=== PATIENT | female | born 1960 | race African-American/Black ===

== ENCOUNTER 2021-05-09 11:15 | Emergency (ER) | payer OTHER ==
[2021-05-09 11:27] VITALS: TEMP 97.8; BMI 32.3
[2021-05-09] MEDS ORDERED: ACETAMINOPHEN 1000 MG/100 ML BAG IVPB ONE (13:19)
[2021-05-09] MEDS ORDERED: SODIUM CHLORIDE 0.9% 500 ML INFUS.BAG IV ONE (13:19)
[2021-05-09] MEDS ORDERED: ACETAMINOPHEN INJECTION 100 ML IVPB ONE (13:26)
[2021-05-09 15:03] LABS: CHLORIDE 104 mmol/L (98-107); SODIUM 140 mmol/L (136-145)
[2021-05-09 15:06] LABS: ANION GAP 8 MMOL/L (8-16); BLOOD UREA NITROGEN 13.9 mg/dL (7-18); CO2 28 mmol/L (21-32)
[2021-05-09 15:07] LABS: ALBUMIN 3.7 g/dl (3.4-5.0); GLUCOSE,RANDOM 94 mg/dL (74-106)
[2021-05-09 15:09] LABS: CREATININE 0.7 mg/dL (0.55-1.3); SGOT/AST 30 U/L (15-37); SGPT/ALT 30 U/L (13-61)
[2021-05-09 15:10] LABS: TOT PROT 7.6 g/dl (6.4-8.2)
[2021-05-09 15:11] LABS: BILIRUBIN,TOTAL 0.9 mg/dL (0.2-1)
[2021-05-09 15:12] LABS: ALK PHOS 55 U/L (45-117)
[2021-05-09 15:20] LABS: EPI CELLS 11 /uL (0-25.1); HYALINE CASTS 0 /uL (0-3.1); URINE APPEARANCE CLEAR; URINE BACTERIA 45 /uL (0-1359); URINE BILIRUBIN NEGATIVE (NEGATIVE); URINE COLOR YELLOW; URINE GLUCOSE (UA) NEGATIVE (NEGATIVE); URINE KETONE NEGATIVE (NEGATIVE); URINE LEUK ESTERASE 2+ (NEGATIVE); URINE NITRITE NEGATIVE (NEGATIVE); URINE PROTEIN NEGATIVE (NEGATIVE); URINE RBC 3 /uL (0-23.9); URINE UROBILINOGEN 0.2 mg/dL (0.2-1.0); URINE WBC 18 /uL (0-25.8)
[2021-05-09 15:45] VITALS: BP 136/62; PULSE 60
[2021-05-09 15:51] LABS: BASO % 0.6 % (0-2.0); EOS % 0.1 % (0-4.5); HEMATOCRIT 37.7 % (32.4-45.2); HEMOGLOBIN 13.1 GM/dL (10.7-15.3); MCH 29.1 pg (25.7-33.7); MCHC 34.8 g/dl (32.0-36.0); MEAN CELL VOLUME 83.7 fl (80-96); MEAN PLT VOLUME 9.7 fl (7.5-11.1); MONO % 6.8 % (3.8-10.2); NEUT % 73.5 % (42.8-82.8); PLATELET COUNT 170 10^3/uL (134-434); RDW 15.4 % (11.6-15.6); WHITE BLOOD COUNT 10.4 K/mm3 (4.0-10.0)
== END 2021-05-09 16:46 | disposition home or self-care (01) ==
LOC: JER 11:15
PROC: 3E0333Z Introduction of Anti-inflammatory into Peripheral Vein, Percutaneous Approach (ICD-10-PCS; principal; 2021-05-09)
DX: R03.0 Elevated blood-pressure reading, without diagnosis of hypertension (principal)
CPT/HCPCS: 36415; 70450-TC; 71046-TC-FY; 80053; 81003; 82550; 82553; 84484; 85025; 93005; 93010; 96374; 99285-25; J0131

== ENCOUNTER 2022-02-03 20:38 | Emergency (ER) | payer OTHER ==
[2022-02-03 20:46] VITALS: BP 138/84; PULSE 81; RESP 18; TEMP 98.6; BMI 29.6
[2022-02-03] MEDS ORDERED: METOCLOPRAMIDE HCL INJECTION 10 MG/2 ML VIAL IVPUSH ONE (22:03)
[2022-02-03] MEDS ORDERED: ACETAMINOPHEN 1000 MG/100 ML BAG IVPB ONE (22:03)
[2022-02-03] MEDS ORDERED: ACETAMINOPHEN 500 MG TABLET (FP) PO ONE (23:22)
[2022-02-03] MEDS ORDERED: METOCLOPRAMIDE HCL 10 MG TABLET (FP) PO ONE ×2 (23:22→23:31)
[2022-02-03 23:24] LABS: BASO % 0.5 % (0-2.0); EOS % 0.3 % (0-4.5); HEMATOCRIT 39.6 % (32.4-45.2); HEMOGLOBIN 13.5 GM/dL (10.7-15.3); LYMPH % 32.7 % (8-40); MCH 28.8 pg (25.7-33.7); MCHC 34.1 g/dl (32.0-36.0); MEAN CELL VOLUME 84.3 fl (80-96); MEAN PLT VOLUME 9.6 fl (7.5-11.1); MONO % 5.1 % (3.8-10.2); NEUT % 61.4 % (42.8-82.8); PLATELET COUNT 240 10^3/uL (134-434); RDW 15.7 % (11.6-15.6); WHITE BLOOD COUNT 13.6 K/mm3 (4.0-10.0)
[2022-02-03] MEDS ORDERED: MAG HYDROX/AL HYDROX/SIMETH -MYLANTA- ORAL SUSPENSION PO ONE (23:25)
[2022-02-03] MEDS ORDERED: ACETAMINOPHEN 325 MG TABLET (FP) ONE (23:31)
[2022-02-03 23:46] LABS: BLOOD UREA NITROGEN 14.5 mg/dL (7-18); CALCIUM 9.2 mg/dL (8.5-10.1)
[2022-02-03 23:47] LABS: ALBUMIN 3.7 g/dl (3.4-5.0)
[2022-02-03 23:49] LABS: CREATININE 0.6 mg/dL (0.55-1.3)
[2022-02-03 23:51] LABS: BILIRUBIN,TOTAL 0.8 mg/dL (0.2-1); TOT PROT 7.6 g/dl (6.4-8.2)
[2022-02-04] MEDS ORDERED: MAG HYDROX/AL HYDROX/SIMETH 30 ML UNIT-DOSE CUP ONE (02:27)
== END 2022-02-04 03:06 | disposition home or self-care (01) ==
LOC: JER 20:38
PROC: 3E0333Z Introduction of Anti-inflammatory into Peripheral Vein, Percutaneous Approach (ICD-10-PCS; principal; 2022-02-03)
PROC: 3E033GC Introduction of Other Therapeutic Substance into Peripheral Vein, Percutaneous Approach (ICD-10-PCS; 2022-02-03)
DX: R07.9 Chest pain, unspecified (principal)
CPT/HCPCS: 36415; 71045-TC-FY; 80053; 84484; 85025; 93005; 93010; 96374; 96375; 99285-25

== ENCOUNTER 2022-05-22 04:41 | Day surgery (SDC) | payer OTHER ==
[2022-05-21 15:38] VITALS: BMI 32.4
[2022-05-22 13:22] VITALS: BP 148/77; PULSE 66; RESP 20; TEMP 98
== END 2022-05-22 13:24 | disposition home or self-care (01) ==
LOC: JASU-ENDO 04:41
PROVIDERS: ATTEND Student in an Organized Health Care Education/Training Program
PROC: 0DJD8ZZ Inspection of Lower Intestinal Tract, Via Natural or Artificial Opening Endoscopic (ICD-10-PCS; principal; 2022-05-22 10:30)
DX: Z86.010 Personal history of colon polyps (principal); K57.30 Diverticulosis of large intestine without perforation or abscess without bleeding; K63.89 Other specified diseases of intestine

== ENCOUNTER 2023-05-09 11:36 | Emergency (ER) | payer OTHER ==
[2023-05-09 11:45] VITALS: BMI 32.9
[2023-05-09] MEDS ORDERED: ONDANSETRON 4 MG/2 ML VIAL IVPUSH ONE (12:18)
[2023-05-09] MEDS ORDERED: LACTATED RINGERS SOLUTION 1000 ML INFUS.BAG IV ONE (12:18)
[2023-05-09] MEDS ORDERED: MAG HYDROX/AL HYDROX/SIMETH 30 ML UNIT-DOSE CUP PO ONE (12:18)
[2023-05-09] MEDS ORDERED: FAMOTIDINE 20 MG/50 ML IVPB 20 MG/50 ML MG IVPB ONE ×2 (12:18→13:09)
[2023-05-09 13:09] LABS: HEMATOCRIT 40.3 % (32.4-45.2); HEMOGLOBIN 14.1 GM/dL (10.7-15.3); RBC 4.75 M/mm3 (3.60-5.2); WHITE BLOOD COUNT 12.1 K/mm3 (4.0-10.0)
[2023-05-09] MEDS ORDERED: ONDANSETRON 4 MG/2 ML VIAL ONE (13:09)
[2023-05-09] MEDS ORDERED: MAG HYDROX/AL HYDROX/SIMETH 30 ML UNIT-DOSE CUP ONE (13:09)
[2023-05-09 13:10] LABS: MCH 29.6 pg (25.7-33.7); MCHC 34.9 g/dl (32.0-36.0); MEAN CELL VOLUME 84.9 fl (80-96); MEAN PLT VOLUME 9.9 fl (7.5-11.1); PLATELET COUNT 214 10^3/uL (134-434); RDW 16.1 % (11.6-15.6)
[2023-05-09 13:32] LABS: CHLORIDE 105 mmol/L (98-107); SODIUM 138 mmol/L (136-145)
[2023-05-09 13:35] LABS: CALCIUM 8.8 mg/dL (8.5-10.1)
[2023-05-09 13:36] LABS: ALBUMIN 3.6 g/dl (3.4-5.0); CO2 27 mmol/L (21-32); GLUCOSE,RANDOM 95 mg/dL (74-106); MAGNESIUM 1.9 mg/dL (1.8-2.4)
[2023-05-09 13:39] LABS: CREATININE 0.9 mg/dL (0.55-1.3); SGOT/AST 66 U/L (15-37)
[2023-05-09 13:40] LABS: BILIRUBIN,TOTAL 1.1 mg/dL (0.2-1)
[2023-05-09 13:41] LABS: TOT PROT 8.2 g/dl (6.4-8.2)
[2023-05-09 13:42] LABS: ALK PHOS 61 U/L (45-117)
[2023-05-09 13:51] LABS: ANION GAP 6 mmol/L (4-13); POTASSIUM 6.8 mmol/L (3.5-5.1); SGPT/ALT 38 U/L (13-61)
[2023-05-09 14:02] LABS: ANISOCYTOSIS 0; HELMET CELLS 0; HOWELL-JOLLY BODIES 0; MACROCYTOSIS 0; OVALOCYTE 0; ROULEAU 0; SICKELED CELLS 0; TARGET CELLS 0; TEAR DROP CELLS 0; TOXIC GRANULATION 0
[2023-05-09] MEDS ORDERED: ACETAMINOPHEN 1000 MG/100 ML BAG IVPB ONE (15:18)
[2023-05-09 16:13] LABS: POTASSIUM 3.5 mmol/L (3.5-5.1)
[2023-05-09 16:17] LABS: BLOOD UREA NITROGEN 9.7 mg/dL (7-18); CALCIUM 8.8 mg/dL (8.5-10.1)
[2023-05-09 16:21] LABS: CREATININE 0.7 mg/dL (0.55-1.3)
[2023-05-09] MEDS ORDERED: ACETAMINOPHEN INJECTION 100 ML IVPB ONE (16:26)
[2023-05-09 19:38] VITALS: BP 160/76; PULSE 92; RESP 20; TEMP 97
== END 2023-05-09 20:58 | disposition home or self-care (01) ==
LOC: JER 11:36
PROC: 3E033GC Introduction of Other Therapeutic Substance into Peripheral Vein, Percutaneous Approach (ICD-10-PCS; principal; 2023-05-09)
PROC: 3E033GC Introduction of Other Therapeutic Substance into Peripheral Vein, Percutaneous Approach (ICD-10-PCS; 2023-05-09)
PROC: 3E033NZ Introduction of Analgesics, Hypnotics, Sedatives into Peripheral Vein, Percutaneous Approach (ICD-10-PCS; 2023-05-09)
DX: A08.4 Viral intestinal infection, unspecified (principal); R42 Dizziness and giddiness; R53.1 Weakness; R11.2 Nausea with vomiting, unspecified; Z20.822 Contact with and (suspected) exposure to COVID-19
CPT/HCPCS: 0241U-QW; 36415; 71045-TC-FY; 74177-TC; 80048; 80053; 82962; 83735; 84484; 85025; 93005; 93010; 96365; 96375; 99285-25; J0131; Q9967

== ENCOUNTER 2023-11-04 18:36 | Emergency (ER) | payer OTHER ==
[2023-11-04 18:43] VITALS: TEMP 98.1; BMI 34.0
[2023-11-04] MEDS ORDERED: ACETAMINOPHEN INJECTION 100 ML IVPB ONE (20:17)
[2023-11-04] MEDS ORDERED: FAMOTIDINE 20 MG/50 ML IVPB 20 MG/50 ML MG IVPB ONE (20:17)
[2023-11-04] MEDS ORDERED: MAG HYDROX/AL HYDROX/SIMETH 30 ML UNIT-DOSE CUP ONE (20:17)
[2023-11-04 20:22] LABS: BASO % 0.7 % (0-2.0); EOS % 3.1 % (0-4.5); HEMATOCRIT 37.8 % (32.4-45.2); HEMOGLOBIN 13.2 GM/dL (10.7-15.3); LYMPH % 49.6 % (8-40); MCH 29.2 pg (25.7-33.7); MEAN CELL VOLUME 83.4 fl (80-96); MEAN PLT VOLUME 9.1 fl (7.5-11.1); MONO % 7.5 % (3.8-10.2); NEUT % 39.1 % (42.8-82.8); PLATELET COUNT 231 10^3/uL (134-434); RBC 4.53 M/mm3 (3.60-5.2); RDW 15.6 % (11.6-15.6); WHITE BLOOD COUNT 6.1 K/mm3 (4.0-10.0)
[2023-11-04] MEDS: ACETAMINOPHEN 1000 MG/100 ML BAG IVPB ONE (20:23)
[2023-11-04] MEDS: MAG HYDROX/AL HYDROX/SIMETH 30 ML UNIT-DOSE CUP PO ONE (20:23)
[2023-11-04] MEDS: FAMOTIDINE 20 MG/50 ML IVPB 20 MG/50 ML MG IVPB ONE (20:23)
[2023-11-04 20:43] LABS: POTASSIUM 3.2 mmol/L (3.5-5.1)
[2023-11-04 20:45] LABS: CALCIUM 9.1 mg/dL (8.5-10.1)
[2023-11-04 20:46] LABS: ALBUMIN 3.7 g/dl (3.4-5.0); BLOOD UREA NITROGEN 8.5 mg/dL (7-18)
[2023-11-04 20:49] LABS: CREATININE 0.7 mg/dL (0.55-1.3)
[2023-11-04 20:51] LABS: BILIRUBIN,TOTAL 1.2 mg/dL (0.2-1); TOT PROT 7.7 g/dl (6.4-8.2)
[2023-11-04 21:30] VITALS: BP 152/78; PULSE 73; RESP 20
[2023-11-04] MEDS ORDERED: POTASSIUM CHLORIDE ORAL LIQUID 20 MEQ/15 ML ONE (21:31)
[2023-11-04] MEDS: POTASSIUM CHLORIDE ORAL LIQUID 20 MEQ/15 ML PO ONE (21:37)
== END 2023-11-04 22:30 | disposition home or self-care (01) ==
LOC: JER 18:36
PROC: 3E033GC Introduction of Other Therapeutic Substance into Peripheral Vein, Percutaneous Approach (ICD-10-PCS; principal; 2023-11-04)
PROC: 3E033NZ Introduction of Analgesics, Hypnotics, Sedatives into Peripheral Vein, Percutaneous Approach (ICD-10-PCS; 2023-11-04)
DX: R12 Heartburn (principal); R07.9 Chest pain, unspecified; Z20.822 Contact with and (suspected) exposure to COVID-19
CPT/HCPCS: 0241U-QW; 36415; 71045-TC-FY; 80053; 84484; 85025; 93005; 93010; 99285-25; J0131